=== PATIENT | male | born 1965 | race Caucasian/White ===

== ENCOUNTER → 2017-08-24 | Outpatient (CLI) | payer OTHER ==
[2017-08-24 12:21] LABS: CHOLESTEROL 105.76 mg/dL (0-200); TRIGLYCERIDES 92 mg/dL (<150)
[2017-08-24 12:32] LABS: DIRECT LDL 58 mg/dL (<100)
== END ==
LOC: CCC 11:02
DX: E11.8 Type 2 diabetes mellitus with unspecified complications (principal); E78.4 Other hyperlipidemia; E03.9 Hypothyroidism, unspecified
CPT/HCPCS: 36415; 80061; 83036; 84443

== ENCOUNTER → 2018-10-07 | Outpatient (CLI) | payer BC ==
--- NOTE | 2018-10-07 12:00 | RADIOLOGY REPORT (SQ) ---
EXAM DESCRIPTION: U/S ABDOMEN LIMITED W/O DOP COMPLETED DATE/TIME: 10/07/2018 11:41 am REASON FOR STUDY: RUQ PAIN (R10.11) R10.11 RIGHT UPPER QUADRANT PAIN COMPARISON: None. TECHNIQUE: Dynamic and static grayscale images acquired of the abdomen and recorded on PACS. Additio nal selected color Doppler and spectral images recorded. Note: Exam does not meet criteria for a complete doppler/duplex scan LIMITATIONS: Study limited due to acoustical interference from fat or from air in the bowel. FINDINGS: PANCREAS: Poorly seen secondary to acoustical interference from fat or from air in the bow el. No visualized masses. Duct normal caliber as seen. LIVER: Echotexture is coarse with increased echogenicity consistent with fatty infiltration. LIVER VASCULATURE: Normal directional flow of the main portal vein and hepatic veins. GALLBLADDER: No stones. Normal wall thickness. No pericholecystic fluid. ULTRASOUND-DETECTED MARTINEZ'S SIGN: Negative. INTRAHEPATIC DUCTS AND COMMON DUCT: CBD and intrahepatic ducts normal caliber. No filling defects. INFERIOR VENA CAVA: Normal flow. AORTA: Infrarenal abdominal aortic aneurysm with AP diameter of 3.0 cm. RIGHT KIDNEY: Normal size. Normal echogenicity. No solid or suspicious masses. No hydronephrosis. No calcifications. PERITONEAL AND PLEURAL SPACES: No ascites or effusions. OTHER: No other significant finding. IMPRESSION: 1. 3.0 CM INFRARENAL ABDOMINAL AORTIC ANEURYSM. 2. FATTY INFILTRATION OF THE LIVER. NO OTHER SIGNIFICANT FINDING IN THE VISUALIZED ABDOMEN. COMMENT: AAA Size: Follow-up Recommendation 3.0-3.4 cm Every 3 years *Based upon the Society for Vascular Surgery Guidelines: J Vasc Surg. 2009 Apr;50(4 Suppl):S2-49 *For aortas of maximum diameter of 2.6-2.9 cm meeting the criteria for AAA (?1.5 x proximal normal se gment) TECHNICAL DOCUMENTATION: JOB ID: [id number] [employer]- All Rights Reserved Reading location - IP/workstation name: [email or web address]
== END ==
LOC: RAD 09:38
PROVIDERS: ATTEND Internal Medicine
DX: I71.4 Abdominal aortic aneurysm, without rupture (principal); R10.11 Right upper quadrant pain; K76.0 Fatty (change of) liver, not elsewhere classified
CPT/HCPCS: 76705

== ENCOUNTER 2018-10-15 12:37 | Emergency (ER) | payer BC ==
[2018-10-15] MEDS ORDERED: ASPIRIN 81 MG TABLET, CHEWABLE PO ONE (13:04)
--- NOTE | 2018-10-15 13:14 | ER Document Report ---
ED Medical Screen (RME) - General Chief Complaint: Chest Pain Stated Complaint: CHEST PAIN Time Seen by Provider: 10/15/18 13:04 Primary Care Provider: MITCH KENT MD [Primary Care Provider] - Follow up as needed Mode of Arrival: Ambulatory Information source: Patient Notes: Patient presents emergency department with complaints of right sided chest pain for the past 3 months. Reports it feels like pins and needles. He has placed a heating pad on the area because it hurts so much. He went to see his primary care provider Dr. Kent who sent him for an abdominal ultrasound. Ultrasound shows a 3.0 cm infrarenal abdominal aortic aneurysm. Patient is a diabetic with cholesterol and thyroid issues. Patient reports the pain did start in his right upper quad and now radiates into his right upper chest. Patient reports Dr. Kent called him this morning told him to get his ass Over to the emergency department now. EKG SR, LBBB, I have greeted and performed a rapid initial assessment of this patient. A comprehensive ED assessment and evaluation of the patient, analysis of test results and completion of the medical decision making process will be conducted by additional ED providers. Dictation of this chart was performed using voice recognition software; therefore, there may be some unintended grammatical errors. TRAVEL OUTSIDE OF THE [place] IN LAST 30 DAYS: No - Related Data Allergies/Adverse Reactions: No Known Allergies Allergy (Verified 10/15/18 12:59) Past Medical History Endocrine Medical History: Reports: Hx Diabetes Mellitus Type 2 - Immunizations Hx Diphtheria, Pertussis, Tetanus Vaccination: Yes Physical Exam - Vital signs Vitals: Temp Pulse Resp BP Pulse Ox 98.2 F 99 18 136/96 H 99 10/15/18 12:54 10/15/18 12:54 10/15/18 12:54 10/15/18 12:54 10/15/18 12:54 Course - Vital Signs Vital signs: Temp Pulse Resp BP Pulse Ox 98.2 F 99 18 136/96 H 99 10/15/18 12:54 10/15/18 12:54 10/15/18 12:54 10/15/18 12:54 10/15/18 12:54 Doctor's Discharge - Discharge Referrals: MITCH KENT MD [Primary Care Provider] - Follow up as needed
--- NOTE | 2018-10-15 13:43 | RADIOLOGY REPORT (SQ) ---
EXAM DESCRIPTION: CHEST 2 VIEWS COMPLETED DATE/TIME: 10/15/2018 1:35 pm REASON FOR STUDY: cp COMPARISON: 03/18/2015. EXAM PARAMETERS: NUMBER OF VIEWS: two views TECHNIQUE: Digital Frontal and Lateral radiographic views of the chest acquired. RADIATION DOSE: NA LIMITATIONS: none FINDINGS: LUNGS AND PLEURA: No opacities, masses or pneumothorax. No pleural effusion. MEDIASTINUM AND HILAR STRUCTURES: No masses or contour abnormalities. HEART AND VASCULAR STRUCTURES: Heart normal size. No evidence for failure. BONES: No acute findings. HARDWARE: None in the chest. OTHER: No other significant finding. IMPRESSION: NO ACUTE RADIOGRAPHIC FINDING IN THE CHEST. TECHNICAL DOCUMENTATION: JOB ID: [id number] [employer]- All Rights Reserved Reading location - IP/workstation name: [email or web address]
[2018-10-15 13:49] LABS: APPEARANCE,URINE CLEAR; BILIRUBIN,URINE NEGATIVE (NEGATIVE); COLOR,URINE YELLOW; GLUCOSE, URINE >=500 mg/dL (NEGATIVE); KETONES,URINE NEGATIVE (NEGATIVE); LEUKOCYTE ESTERASE,URINE NEGATIVE (NEGATIVE); NITRITE,URINE NEGATIVE (NEGATIVE); PROTEIN,URINE NEGATIVE (NEGATIVE); URINE SPECIFIC GRAVITY 1.031
[2018-10-15 14:01] LABS: ABSOLUTE BASOPHILS # (AUTO) 0.1 10^3/uL (0.0-0.2); ABSOLUTE EOSINOPHILS # (AUTO) 0.1 10^3/uL (0.0-0.6); ABSOLUTE LYMPHOCYTES (AUTO) 2.7 10^3/uL (0.5-4.7); ABSOLUTE MONOCYTES (AUTO) 0.5 10^3/uL (0.1-1.4); ABSOLUTE NEUT (AUTO) 6.1 10^3/uL (1.7-8.2); BASOPHILS % (AUTO) 1.2 % (0-2); EOSINOPHILS % (AUTO) 1.5 % (0-6); HEMATOCRIT 48.4 % (37.9-51.0); HEMOGLOBIN 16.8 g/dL (13.5-17.0); LYMPHOCYTES % (AUTO) 28.1 % (13-45); MEAN CORPUSCULAR HEMOGLOBIN 33.8 pg (27.0-33.4); MEAN CORPUSCULAR HGB CONC 34.7 g/dL (32.0-36.0); MEAN CORPUSCULAR VOLUME 98 fl (80-97); MONOCYTES % (AUTO) 5.4 % (3-13); RED BLOOD COUNT 4.96 10^6/uL (4.35-5.55); RED CELL DISTRIBUTION WIDTH 14.1 % (11.5-14.0); SEGMENTED NEUTROPHILS % (AUTO) 63.8 % (42-78); TOTAL CELLS COUNTED % (AUTO) 100 %; WHITE BLOOD COUNT 9.6 10^3/uL (4.0-10.5)
[2018-10-15 14:15] LABS: PLATELET COUNT 175 10^3/uL (150-450)
--- NOTE | 2018-10-15 15:26 | ER Document Report ---
ED General - General Chief Complaint: Chest Pain Stated Complaint: CHEST PAIN Time Seen by Provider: 10/15/18 13:04 Primary Care Provider: MITCH KENT MD [Primary Care Provider] - Follow up as needed Mode of Arrival: Ambulatory Notes: This is a 53-year-old male with history of diabetes, hypothyroidism, and recently diagnosed 3 cm infrarenal abdominal aortic aneurysm presents to the emergency department for right upper quadrant pain. He is a poor historian. He states that he was in "doctor O's office" a week ago and they did an ultrasound and it said "1 of my veins was big". Further investigation revealed the ultrasound and the AAA. Patient states he is short of breath and is having chest pain that is in the area of the lower ribs on the right side. Denies nausea or vomiting. Denies central chest pain but does state that the right upper quadrant pain does radiate to his back. Denies diaphoresis. He is a smoker. Denies hypertension. TRAVEL OUTSIDE OF THE [place] IN LAST 30 DAYS: No - Related Data Allergies/Adverse Reactions: No Known Allergies Allergy (Verified 10/15/18 12:59) Past Medical History - General Information source: Patient - Social History Smoking Status: Current Every Day Smoker Family History: Reviewed & Not Pertinent Patient has suicidal ideation: No Patient has homicidal ideation: No - Past Medical History Cardiac Medical History: Reports: Hx Hypercholesterolemia Endocrine Medical History: Reports: Hx Diabetes Mellitus Type 2 Renal/ Medical History: Denies: Hx Peritoneal Dialysis - Immunizations Hx Diphtheria, Pertussis, Tetanus Vaccination: Yes Review of Systems - Review of Systems Constitutional: See HPI EENT: No symptoms reported Cardiovascular: See HPI Respiratory: See HPI Gastrointestinal: See HPI Genitourinary: See HPI Male Genitourinary: No symptoms reported Musculoskeletal: No symptoms reported Skin: No symptoms reported Hematologic/Lymphatic: No symptoms reported Neurological/Psychological: No symptoms reported Physical Exam - Vital signs Vitals: Temp Pulse Resp BP Pulse Ox 98.2 F 99 18 136/96 H 99 10/15/18 12:54 10/15/18 12:54 10/15/18 12:54 10/15/18 12:54 10/15/18 12:54 - Notes Notes: PHYSICAL EXAMINATION: Reviewed vital signs and charting by RN GENERAL: Alert, interacts well. No acute distress. HEAD: Normocephalic, atraumatic. EYES: Pupils equal and round. Extraocular movements intact. NECK: Full range of motion. Supple. Trachea midline. LUNGS: Clear to auscultation bilaterally, no wheezes, rales, or rhonchi. No respiratory distress. HEART: Regular rate and rhythm. No murmur ABDOMEN: soft, tenderness to palpation over the right lower ribs and right upper quadrant. There is some edema of the costochondral muscles on the right side that are tender to palpation. Non-distended. Bowel sounds present. no McBurney's point tenderness, no Reynoso sign. EXTREMITIES: Moves all 4 extremities spontaneously. No edema, No cyanosis. Normal distal neurovascular exam BACK: No CVAT NEUROLOGIC: Oriented and appropriate. Normal speech. PSYCH: Normal affect, normal mood. SKIN: Warm, dry, normal turgor. No rashes or lesions noted. Course - Re-evaluation Re-evalutation: 10/15/18 15:28 Overall well-appearing. Recent diagnosis of infrarenal abdominal aortic aneurysm measuring 3.0 cm. Patient was told by his primary doctor to come to the emergency department after having chest pain. 10/15/18 18:[address] Tian. On physical exam and after listening history symptoms are most consistent with musculoskeletal injury of the ribs. Initially discussed getting a CTA abdomen pelvis to assess the existing AAA. But patient is not hypertensive or tachycardic so I have low concern for it at this time. Patient was given strict return precautions and is safe and stable for discharge. - Vital Signs Vital signs: Temp Pulse Resp BP Pulse Ox 98.2 F 99 18 136/96 H 99 10/15/18 12:54 10/15/18 12:54 10/15/18 12:54 10/15/18 12:54 10/15/18 12:54 - Laboratory Result Diagrams: 10/15/18 13:27 10/15/18 15:05 Laboratory results interpreted by me: 10/15/18 10/15/18 10/15/18 13:27 13:27 15:05 MCV 98 H MCH 33.8 H RDW 14.1 H Sodium 136.9 L Potassium 5.1 H Glucose 259 H Creatine Kinase 52 L Urine Glucose (UA) >=500 H Urine Urobilinogen 4.0 H Discharge - Discharge Clinical Impression: Rib pain on right side Condition: Good Disposition: HOME, SELF-CARE Additional Instructions: You are seen in the emergency department this afternoon for right-sided rib pain. The aneurysm in your belly. Based on what you are telling me and the fact that your throwing straps that type of a twisting motion can cause a strain on the muscles in between your ribs. This is all very reassuring. You should still follow-up with Dr. Kent. If you develop severe central abdominal pain that ribs through to her back, you become lightheaded with severe pain, you pass out, or you have any other concerning symptoms immediately return to the emergency department. Referrals: MITCH KENT MD [Primary Care Provider] - Follow up as needed
[2018-10-15 16:06] LABS: ALANINE AMINOTRANSFERASE 44 U/L (21-72); ALBUMIN 3.9 g/dL (3.5-5.0); ALKALINE PHOSPHATASE 123 U/L (38-126); ANION GAP 6 (5-19); ASPARTATE AMINO TRANSFERASE 34 U/L (17-59); BILIRUBIN,DIRECT 0.3 mg/dL (0.0-0.4); BILIRUBIN,TOTAL 0.6 mg/dL (0.2-1.3); BLOOD UREA NITROGEN 15 mg/dL (7-20); CARBON DIOXIDE 28 mmol/L (22-30); CHLORIDE 103 mmol/L (98-107); CREATINE KINASE 52 U/L (55-170); GLUCOSE 259 mg/dL (75-110); LIPASE 137.2 U/L (23-300); POTASSIUM 5.1 mmol/L (3.6-5.0); SODIUM 136.9 mmol/L (137-145); TOTAL PROTEIN 6.8 g/dL (6.3-8.2)
[2018-10-15 16:18] LABS: CREATINE KINASE MB 1.2 ng/mL (<4.55); TROPONIN I 0.022 ng/mL
[2018-10-15 18:51] VITALS: BP 132/93
--- NOTE | 2018-10-16 10:22 | EKG REPORT ---
SEVERITY:- ABNORMAL ECG - SINUS RHYTHM PROBABLE LEFT ATRIAL ABNORMALITY LEFT BUNDLE BRANCH BLOCK : Confirmed by: Tory Spencer 16-Oct-2018 10:22:02
== END 2018-10-15 18:51 | disposition home or self-care (01) ==
LOC: ER 12:37
DX: R07.81 Pleurodynia (principal); I71.4 Abdominal aortic aneurysm, without rupture; R60.0 Localized edema; R10.11 Right upper quadrant pain; R06.02 Shortness of breath; F17.200 Nicotine dependence, unspecified, uncomplicated; E11.9 Type 2 diabetes mellitus without complications
CPT/HCPCS: 36415; 71046; 80053; 81001; 82550; 82553; 83690; 84484; 85025; 93005; 93010; 99284

== ENCOUNTER → 2020-02-05 | Emergency (ER) | payer MEDICAID ==
[~2020-02-05] MED LIST: NICOTINE 14 MG/24 HR PATCH.TD24 TD ONE
--- NOTE | 2020-02-05 10:24 | ER Document Report ---
ED Medical Screen (RME) - General Chief Complaint: Arrhythmia Stated Complaint: LOW HEART RATE Time Seen by Provider: 02/05/20 10:19 Primary Care Provider: MITCH KENT MD [Primary Care Provider] - Follow up as needed Notes: Patient is a 54-year-old male who presents emergency department with a low heart rate. Patient was seen by his primary care provider this morning and was referred to the emergency department due to his heart rate being in the 40s. He was told about a month ago that he needed a pacemaker. He has not received the pacemaker. Patient states that he does feel short of breath and lightheaded. Exam: Third-degree heart block noted on twelve-lead EKG. Patient brought back to the room after evaluation of 12-lead EKG. I have greeted and performed a rapid initial assessment of this patient. A comprehensive ED assessment and evaluation of the patient, analysis of test results and completion of medical decision making process will be conducted by an additional ED providers. TRAVEL OUTSIDE OF THE [place] IN LAST 30 DAYS: No - Related Data Allergies/Adverse Reactions: No Known Allergies Allergy (Verified 10/15/18 12:59) Past Medical History - Social History Frequency of alcohol use: None Drug Abuse: None - Past Medical History Cardiac Medical History: Reports: Hx Hypercholesterolemia Endocrine Medical History: Reports: Hx Diabetes Mellitus Type 2 Renal/ Medical History: Denies: Hx Peritoneal Dialysis - Immunizations Hx Diphtheria, Pertussis, Tetanus Vaccination: Yes Physical Exam - Vital signs Vitals: Temp Pulse Resp BP Pulse Ox 98.3 F 42 L 18 132/71 H 97 02/05/20 10:02/05/20 10:02/05/20 10:02/05/20 10:17 02/05/20 10:17 Course - Vital Signs Vital signs: Temp Pulse Resp BP Pulse Ox 98.3 F 42 L 18 132/71 H 97 02/05/20 10:02/05/20 10:02/05/20 10:02/05/20 10:17 02/05/20 10:17 Doctor's Discharge - Discharge Referrals: MITCH KENT MD [Primary Care Provider] - Follow up as needed
[2020-02-05 11:00] LABS: ABSOLUTE EOSINOPHILS # (AUTO) 0.2 10^3/uL (0.0-0.6); ABSOLUTE LYMPHOCYTES (AUTO) 2.4 10^3/uL (0.5-4.7); ABSOLUTE MONOCYTES (AUTO) 0.5 10^3/uL (0.1-1.4); ABSOLUTE NEUT (AUTO) 5.5 10^3/uL (1.7-8.2); BASOPHILS % (AUTO) 0.5 % (0-2); EOSINOPHILS % (AUTO) 2.7 % (0-6); HEMATOCRIT 44.4 % (37.9-51.0); HEMOGLOBIN 15.3 g/dL (13.5-17.0); LYMPHOCYTES % (AUTO) 27.8 % (13-45); MEAN CORPUSCULAR HGB CONC 34.5 g/dL (32.0-36.0); MEAN CORPUSCULAR VOLUME 96 fl (80-97); MONOCYTES % (AUTO) 6.1 % (3-13); PLATELET COUNT 150 10^3/uL (150-450); RED BLOOD COUNT 4.64 10^6/uL (4.35-5.55); RED CELL DISTRIBUTION WIDTH 13.8 % (11.5-14.0); SEGMENTED NEUTROPHILS % (AUTO) 62.9 % (42-78); TOTAL CELLS COUNTED % (AUTO) 100 %; WHITE BLOOD COUNT 8.8 10^3/uL (4.0-10.5)
--- NOTE | 2020-02-05 11:04 | ER Document Report ---
ED General - General Chief Complaint: Arrhythmia Stated Complaint: LOW HEART RATE Time Seen by Provider: 02/05/20 10:19 Primary Care Provider: MITCH KENT MD [ACTIVE STAFF] - Follow up as needed TRAVEL OUTSIDE OF THE [place] IN LAST 30 DAYS: No - HPI Notes: Patient is a 54-year-old gentleman who presents to the emergency department for evaluation. He states he would not be here except for the fact that his primary care provider sent him in. He states that he goes there monthly to receive his pain medication prescription. Patient states that a month ago he was told that he had a low heart rate, he would need to see cardiology. He states he was told to expect a phone call, never received 1, so never followed up with cardiology. Today he went back to his primary care provider's office who found his heart rate to be 40, so he was sent here to the ED for further evaluation. The patient states that every day, twice a day, he has pain in the right side of his chest that radiates to his shoulder blades. He has some associated shortness of breath and nausea with this occasionally. He describes it as a burning. He states is not necessarily brought about by exertion, can happen at rest. He states nothing seems to make it better or worse. He states it lasts about 15 to 20 minutes. Patient also relates shortness of breath and dizziness with exertion, sometimes with change of position. He states he has been taking his medications as prescribed, denies any new medications. - Related Data Allergies/Adverse Reactions: No Known Allergies Allergy (Verified 10/15/18 12:59) Home Medications: Pro-air, metformin, Mobic, Cymbalta, Ultram, insulin, Victoza, Synthroid, Neurontin, atorvastatin Past Medical History - General Information source: Patient - Social History Smoking Status: Current Every Day Smoker Frequency of alcohol use: None Drug Abuse: None Family History: Reviewed & Not Pertinent, Malignancy - Past Medical History Cardiac Medical History: Reports: Hx Hypercholesterolemia Pulmonary Medical History: Reports: Hx COPD Endocrine Medical History: Reports: Hx Diabetes Mellitus Type 2, Hx Hypothyroidism Renal/ Medical History: Denies: Hx Peritoneal Dialysis - Immunizations Hx Diphtheria, Pertussis, Tetanus Vaccination: Yes Review of Systems - Review of Systems Constitutional: Weakness Cardiovascular: See HPI Respiratory: See HPI Gastrointestinal: See HPI -: Yes All other systems reviewed and negative Physical Exam - Vital signs Vitals: Temp Pulse Resp BP Pulse Ox 98.3 F 42 L 18 132/71 H 97 02/05/20 10:17 02/05/20 10:17 02/05/20 10:17 02/05/20 10:17 02/05/20 10:17 - Notes Notes: This is a 54-year-old male who appears his stated age, no acute distress. Vital signs reviewed, please refer to chart. Head is normocephalic, atraumatic. Pupils equal round, reactive to light. Neck is supple without meningismus. Heart is bradycardic. Lungs reveal diminished breath sounds but no wheezes, rales, rhonchi. Abdomen is soft, nontender, normoactive bowel sounds throughout. Extremities without cyanosis, clubbing is noted. Posterior calves are nontender. Peripheral pulses are equal. Skin is warm and dry. Patient is awake, alert, neurological exam is nonfocal. Course - Re-evaluation Re-evalutation: 02/05/20 11:09 Patient presents emergency department for evaluation. He complains of chest pain, shortness of breath, dizziness with exertion. He is found to have a complete heart block. He was placed on a secured entrance monitor, laboratory investigations were obtained. I did add thyroid studies. External pacer pads placed. Patient is stable, we will continue to monitor. 02/05/20 12:41 Patient's laboratory investigations are unremarkable. I spoke with Dr. Sullivan, who agrees the patient will need pacemaker. He suggests transfer, as it is not possible to place a transvenous pacemaker at this time at this facility. 02/05/20 14:53 Call has been made to [facility]. I just spoke with Dr. Galvan, internal medicine physician on-call at [facility]. She accepted the patient in transfer. Awaiting bed assignment. The patient remained stable. His heart rate is 35, blood pressure is stable, he is asymptomatic. 02/05/20 15:30 Patient was threatening to leave AGAINST MEDICAL ADVICE as he had some valuables in his car and wanted to smoke. We talked at length. He would only agree to stay after he was able to find somebody to help with the valuables in his car, and only would stay if he was able to get a nicotine patch. This is ordered. - Vital Signs Vital signs: Temp Pulse Resp BP Pulse Ox 98.3 F 42 L 25 H 137/58 H 97 02/05/20 10:17 02/05/20 10:17 02/05/20 15:01 02/05/20 15:01 02/05/20 15:01 - Laboratory Result Diagrams: 02/05/20 10:40 02/05/20 10:40 Laboratory results interpreted by me: 02/05/20 02/05/20 10:40 10:40 Sodium 132.9 L Creatinine 0.48 L Glucose 314 H TSH 5.13 H - Diagnostic Test Radiology reviewed: Reports reviewed - EKG Interpretation by Me Additional EKG results interpreted by me: 02/05/20 11:06 Third-degree heart block with a rate of 42 bpm. Left axis deviation. Right bundle branch block, left anterior fascicular block. Nonspecific ST changes but no acute elevations concerning for infarction. This is a change since prior study. Critical Care Note - Critical Care Note Total time excluding time spent on procedures (mins): 30 Discharge - Discharge Clinical Impression: Third degree heart block Condition: Stable Disposition: [facility] Admitting Provider: Dr. Galvan Referrals: MITCH KENT MD [ACTIVE STAFF] - Follow up as needed
[2020-02-05 11:23] LABS: ALBUMIN 4.1 g/dL (3.5-5.0); ALKALINE PHOSPHATASE 103 U/L (38-126); ANION GAP 5 (5-19); ASPARTATE AMINO TRANSFERASE 27 U/L (17-59); BILIRUBIN,TOTAL 0.7 mg/dL (0.2-1.3); BLOOD UREA NITROGEN 7 mg/dL (7-20); CALCIUM 9.8 mg/dL (8.4-10.2); CARBON DIOXIDE 28 mmol/L (22-30); CHLORIDE 100 mmol/L (98-107); GLUCOSE 314 mg/dL (75-110); POTASSIUM 4.8 mmol/L (3.6-5.0); TOTAL PROTEIN 7.1 g/dL (6.3-8.2)
--- NOTE | 2020-02-05 11:49 | RADIOLOGY REPORT (SQ) ---
EXAM DESCRIPTION: CHEST SINGLE VIEW IMAGES COMPLETED DATE/TIME: 02/05/2020 11:35 am REASON FOR STUDY: shortness of breath COMPARISON: 10/15/2018 EXAM PARAMETERS: NUMBER OF VIEWS: One view. TECHNIQUE: Single frontal radiographic view of the chest acquired. RADIATION DOSE: NA LIMITATIONS: None. FINDINGS: LUNGS AND PLEURA: No opacities, masses or pneumothorax. No pleural effusion. MEDIASTINUM AND HILAR STRUCTURES: No masses. Contour normal. HEART AND VASCULAR STRUCTURES: Heart normal in size. Normal vasculature. BONES: No acute findings. HARDWARE: None in the chest. OTHER: No other significant finding. IMPRESSION: NO ACUTE RADIOGRAPHIC FINDING IN THE CHEST. TECHNICAL DOCUMENTATION: JOB ID: [id number] [employer]- All Rights Reserved Reading location - IP/workstation name: [email or web address]
[2020-02-05 15:17] VITALS: BP 137/58
--- NOTE | 2020-02-05 22:51 | EKG REPORT ---
SEVERITY:- ABNORMAL ECG - RBBB AND LAFB PROBABLE LEFT VENTRICULAR HYPERTROPHY COMPLETE HEART BLOCK ( 3rd DEGREE AV BLOCK) : Confirmed by: Sindy Reinoso MD 05-Feb-2020 22:51:15
== END | disposition short-term general hospital (02) ==
LOC: ER 10:01
DX: I44.2 Atrioventricular block, complete (principal); I45.2 Bifascicular block; R07.9 Chest pain, unspecified; R06.02 Shortness of breath; R11.0 Nausea; R42 Dizziness and giddiness; R53.1 Weakness; E78.00 Pure hypercholesterolemia, unspecified; F17.200 Nicotine dependence, unspecified, uncomplicated; E11.9 Type 2 diabetes mellitus without complications; E03.9 Hypothyroidism, unspecified; J44.9 Chronic obstructive pulmonary disease, unspecified; Z79.899 Other long term (current) drug therapy; Z79.4 Long term (current) use of insulin; Z79.1 Long term (current) use of non-steroidal anti-inflammatories (NSAID)
CPT/HCPCS: 93005; 99291; 36415; 83735; 84443; 85025; 80053; 84484; 71045; 93010; J3490